=== PATIENT | female | born 1970 | race African-American/Black ===

== ENCOUNTER → 2019-09-05 | Outpatient (CLI) | payer BC ==
--- NOTE | 2019-09-05 14:39 | RAD ---
EXAM: Right shoulder, 3 views. HISTORY: Pain. COMPARISON: None. FINDINGS: 3 views of the right shoulder obtained. There is no fracture, dislocation or subluxation. There aren't suspected small degenerative subchondral cysts involving the articular aspect of the head. IMPRESSION: No acute osseous finding. Electronically signed by: Evelia Lima MD (09/05/2019 2:37 PM) [facility]
== END ==
LOC: DXRAD 14:02
PROVIDERS: ATTEND Physician Assistant
DX: S46.911D Strain of unspecified muscle, fascia and tendon at shoulder and upper arm level, right arm, subsequent encounter (principal); X58.XXXD Exposure to other specified factors, subsequent encounter
CPT/HCPCS: 73030